=== PATIENT | female | born 1995 | race African-American/Black ===

== ENCOUNTER 2020-09-22 20:12 | Emergency (ER) | payer OTHER ==
--- NOTE | 2020-09-22 20:59 | EDM.PDOC ---
ED HPI GENERAL MEDICAL PROBLEM - General Chief Complaint: Gastrointestinal Problem Stated Complaint: CONGESTION,DIARRHEA,NAUSEA Time Seen by Provider: 09/22/20 20:50 Source of Information: Reports: Patient, RN, RN Notes Reviewed History Limitations: Reports: No Limitations - History of Present Illness INITIAL COMMENTS - FREE TEXT/NARRATIVE: Anjali is a 25 y/o female who presents to the ED via personal vehicle for complaints of congestion, heartburn, and nausea. She reports these symptoms started about seven days ago and have maintained in severity in that time, however she states she began experiencing loose stools since yesterday. She denies recent illness, fever, shaking chills, cough, sore throat, chest tightness/pressure, shortness of breath, vomiting, abdominal pain, dysuria, or hematuria. She does report a decrease in appetite, but was able to eat a meal prior to her arrival to this facility. She states her LMP was July 28. No individuals around her have experienced similar symptoms. - Related Data Allergies Allergy/AdvReac Type Severity Reaction Status Date / Time No Known Allergies Allergy Verified 09/22/20 20:27 Home Meds: Home Meds . [No Known Home Meds] 09/22/20 [History] Past Medical History - Past Health History Medical/Surgical History: Denies Medical/Surgical History - Infectious Disease History Infectious Disease History: Reports: None Social & Family History - Family History Family Medical History: No Pertinent Family History - Tobacco Use Tobacco Use Status *Q: Never Tobacco User - Caffeine Use Caffeine Use: Reports: None - Recreational Drug Use Recreational Drug Use: No ED ROS GENERAL - Review of Systems Review Of Systems: Comprehensive ROS is negative, except as noted in HPI. ED EXAM, GENERAL - Physical Exam Exam: See Below Exam Limited By: No Limitations General Appearance: Alert, No Apparent Distress Eye Exam: Bilateral Eye: EOMI, Normal Inspection, PERRL (3mm) Ears: Normal External Exam, Normal Canal, Hearing Grossly Normal, Normal TMs Ear Exam: Bilateral Ear: Auricle Normal, Canal Normal, TM normal Nose: Normal Inspection, Normal Mucosa, No Blood Throat/Mouth: Normal Inspection, Normal Voice, No Airway Compromise. No: Normal Oropharynx (Dry mucouc membranes) Head: Atraumatic, Normocephalic Neck: Normal Inspection, Supple, Non-Tender, Full Range of Motion. No: Lymphadenopathy (L), Lymphadenopathy (R) Respiratory/Chest: No Respiratory Distress, Lungs Clear, Normal Breath Sounds, No Accessory Muscle Use, Chest Non-Tender Cardiovascular: Normal Peripheral Pulses, Regular Rate, Rhythm, No Edema, No Gallop, No JVD, No Murmur, No Rub Peripheral Pulses: 2+: Radial (L), Radial (R) GI/Abdominal: Normal Bowel Sounds, Soft, Non-Tender, No Distention, No Abnormal Bruit, No Mass, Pelvis Stable (Female) Exam: Deferred Rectal (Female) Exam: Deferred Back Exam: Normal Inspection, Full Range of Motion Extremities: Normal Inspection, Normal Range of Motion, Non-Tender, No Pedal Edema, Normal Capillary Refill Neurological: Alert, Oriented, CN II-XII Intact, Normal Cognition, Normal Gait, No Motor/Sensory Deficits Psychiatric: Normal Affect, Normal Mood Skin Exam: Warm, Dry, Intact, Normal Color, No Rash. No: Ecchymosis, Erythema, Jaundice, Mottled, Pallor, Petechiae Course - Vital Signs Last Recorded V/S: Last Vital Signs Temp 97.4 F 09/22/20 20:25 Pulse 102 H 09/22/20 20:25 Resp 16 09/22/20 20:25 BP 142/78 H 09/22/20 20:25 Pulse Ox 100 09/22/20 20:25 - Orders/Labs/Meds Labs: Laboratory Tests 09/22/20 09/22/20 Range/Units 21:00 21:00 HCG, Qual Positive HCG, Quant 376 H (0-6) mIU/mL - Re-Assessments/Exams Free Text/Narrative Re-Assessment/Exam: 09/22/20 Hcg positive. Will run quant, as well, given OBGYN history of SA2 Quant 376; appropriate for stated LMP Supportive cares for first trimester reviewed as well as red flag signs and symptoms which would warrant reevaluation. Patient verbalized understanding and agreement with the plan of care. Departure - Departure Time of Disposition: 22:02 Disposition: Home, Self-Care 01 Condition: Good Clinical Impression: First trimester , test positive - Discharge Information *PRESCRIPTION DRUG MONITORING PROGRAM REVIEWED*: Not Applicable *COPY OF PRESCRIPTION DRUG MONITORING REPORT IN PATIENT MERA: Not Applicable Instructions: First Trimester of , [id number], Care Forms: ED Department Discharge Additional Instructions: 1.) Establish care with a local provider for care; this care can be transferred when you move back home in six months. 2.) Drink plenty of water to stay hydrated. 3.) Eat small, snack-like meals to avoid nausea. 4.) Take a daily vitamin containing DHA and Folic Acid; take vitamins with food and at least 8 oz of water to avoid nausea. Sepsis Event Note (ED) - Evaluation Sepsis Screening Result: No Definite Risk - Focused Exam Vital Signs: Vital Signs Temp Pulse Resp BP Pulse Ox 09/22/20 20:25 97.4 F 102 H 16 142/78 H 100
== END 2020-09-22 22:02 | disposition home or self-care (01) ==
LOC: DL.ED 20:12
DX: Z32.01 Encounter for pregnancy test, result positive (principal)
CPT/HCPCS: 36415; 84702; 84703; 99283